=== PATIENT | male | born 1960 | race Caucasian/White ===

== ENCOUNTER 2020-03-15 13:55 | Outpatient (REF) | payer MEDICARE, MEDICAID, SELFPAY | END 2020-03-15 13:56 | disposition home or self-care (01) | LOC: HO.LAB 13:55 | PROVIDERS: PCP Internal Medicine; Visit Provider Internal Medicine | DX: Z20.828 Contact with and (suspected) exposure to other viral communicable diseases (principal) | CPT/HCPCS: C9803; U0003 ==

== ENCOUNTER 2020-08-20 11:18 | Outpatient (REF) | payer MEDICARE, OTHER, MEDICAID, SELFPAY ==
--- NOTE | ~2020-08-20 | XR_ITS ---
EXAMINATION: XR CHEST CLINICAL INFORMATION: Follow-up left lower lobe pneumonia COMPARISON: Previous chest x-ray June 2010 TECHNIQUE: 2 views of the chest were obtained. FINDINGS: The cardiac and mediastinal contours are normal. The lungs are clear without evidence of pneumonia. There may be an azygos lobe. There is no pleural effusion or pneumothorax. There is a battery in the left anterior chest wall and lead going toward the left lower neck. Bony structures are unremarkable. XR/XR chest 2V IMPRESSION: No evidence of pneumonia.
== END 2020-08-20 11:19 | disposition home or self-care (01) ==
LOC: HO.HMGCX 11:18
PROVIDERS: PCP Internal Medicine; Visit Provider Internal Medicine
DX: J18.1 Lobar pneumonia, unspecified organism (principal)
CPT/HCPCS: 71046

== ENCOUNTER 2021-12-31 10:33 | Outpatient (REF) | payer MEDICARE, OTHER, MEDICAID, SELFPAY ==
[2021-12-31 12:31] LABS: Valproate 58.5 mcg/mL (50.0-100.0)
[2021-12-31 12:34] LABS: Anion Gap 16 (12-20); Blood Urea Nitrogen 5 mg/dL (9-16); Calcium 9.3 mg/dL (8.4-10.2); Carbon Dioxide 24 mmol/L (22-29); Chloride 90 mmol/L (96-108); Estimated Glomerular Filt Rate > 60; Glucose Random 101 mg/dL (60-115); Potassium 4.3 mmol/L (3.3-5.1); Sodium 126 mmol/L (135-145)
[2021-12-31 13:41] LABS: Phenytoin Dilantin < 0.5 ug/mL (10.0-20.0)
== END 2021-12-31 10:34 | disposition home or self-care (01) ==
LOC: HO.LAB 10:33
PROVIDERS: PCP Internal Medicine; Visit Provider Internal Medicine
DX: R53.83 Other fatigue (principal); G40.909 Epilepsy, unspecified, not intractable, without status epilepticus; Z79.899 Other long term (current) drug therapy
CPT/HCPCS: 36415; 80048; 80164; 80185

== ENCOUNTER 2022-01-14 16:07 | Outpatient (REF) | payer MEDICARE, OTHER, MEDICAID, SELFPAY ==
[2022-01-14 16:43] LABS: Anion Gap 19 (12-20); Blood Urea Nitrogen 8 mg/dL (9-16); Calcium 9.4 mg/dL (8.4-10.2); Carbon Dioxide 25 mmol/L (22-29); Chloride 101 mmol/L (96-108); Estimated Glomerular Filt Rate > 60; Glucose Random 101 mg/dL (60-115); Potassium 4.8 mmol/L (3.3-5.1); Sodium 140 mmol/L (135-145)
== END 2022-01-14 16:08 | disposition home or self-care (01) ==
LOC: HO.LAB 16:07
PROVIDERS: PCP Internal Medicine; Visit Provider Internal Medicine
DX: E87.1 Hypo-osmolality and hyponatremia (principal)
CPT/HCPCS: 36415; 80048

== ENCOUNTER 2023-09-02 10:04 | Outpatient (REF) | payer MEDICARE, OTHER, MEDICAID, SELFPAY ==
--- NOTE | ~2023-09-02 | FL_ITS ---
EXAMINATION: XR FLUOROSCOPY UPPER GI WITH AIR CLINICAL INFORMATION: Dysphagia. COMPARISON: None TECHNIQUE: Fluoroscopic air contrast upper GI examination was performed utilizing standard techniques with thin and thick barium and effervescent granules. Numerous spot images were obtained. FINDINGS: Images of the oropharynx and hypopharynx demonstrate slow oral pharyngeal swallow mechanism with delayed epiglottic inversion and soft palate elevation. There is mild ballooning of the hypopharynx upon swallows. There is trace laryngeal penetration with thin and thick barium. No tracheal penetration, glottic or subglottic aspiration identified. Minimal nasopharyngeal reflux present. No hypopharyngeal mass or diverticulum. There was no significant cricopharyngeal achalasia. Probable vagal stimulator is seen on the left at the thoracic inlet. Battery pack lies over the anterior left lower thorax. Single contrast images of the esophagus demonstrate normal caliber, contour, and mucosal pattern. No evidence of stricture, mass, or ulcerations identified. There is to and fro motion of the barium column with nonpropulsive tertiary contractions noted throughout the esophagus. Small type I hiatal hernia is present. No significant gastroesophageal reflux was seen during the course of the examination and on reflux views. Dual contrast and single contrast images of the stomach are somewhat suboptimal. Evaluation of the stomach is overall limited due to poor distention of the stomach from inability to retain the effervescent granule gas. No obvious masses present. Rugal fold thickening may be a result of poor distention. Only scant amounts of contrast progressed into duodenal sweep and the proximal jejunum, with the majority of the contrast remaining in the stomach. Findings may reflect gastroparesis. There was recurrent retrograde peristalsis of contrast from the distal antrum back into the body of the stomach. Gastric outlet obstruction is possible but considered unlikely given appearance. Cannot well assess the duodenal folds or proximal jejunal mucosal folds. Ligament of Treitz appears in normal location. FLUOROSCOPY TIME: 6 minutes 49 seconds Number of Spot Images: 11 Number of Cine: 12 DOSE AREA PRODUCT: 4032 uGy-m2 (microgray-meter squared) FL/FL barium swallow IMPRESSION: 1. Trace laryngeal penetration with thin and thick barium. Slow oral pharyngeal swallow. Ballooning of the hypopharynx during swallow. No tracheal aspiration. 2. To and fro motion of the barium column with nonpropulsive tertiary contractions noted throughout the esophagus consistent with esophageal dysmotility. 3. Small type I hiatal hernia. No reflux identified. 4. Limited evaluation of the stomach due to inability to distend from poor tolerance of retaining the effervescent granule gas and subsequent underdistention. No obvious masses are seen. Prominent rugal folds are likely secondary to underdistention. 5. A trace amount contrast is seen progressing into the duodenal sweep and jejunum, however, the majority of the barium remains in the fundus of the stomach throughout the examination. Cannot well assess the duodenal or proximal jejunal caliber or mucosal patterns. Overall findings could suggest gastroparesis. Cannot exclude gastric outlet obstruction although considered less likely given appearance. Recommend correlation with EGD. 6. Vagal stimulator on the left. This procedure was performed by Brandt Horton PA-C, and supervised by Dr. Last
== END 2023-09-02 10:05 | disposition home or self-care (01) ==
LOC: HO.XRAY 10:04
PROVIDERS: PCP Internal Medicine; Visit Provider Internal Medicine
DX: R13.10 Dysphagia, unspecified (principal)
CPT/HCPCS: 74220

== ENCOUNTER → 2023-09-02 10:06 | Outpatient (BNV) | payer MEDICARE, OTHER, MEDICAID, SELFPAY | PROVIDERS: PCP Internal Medicine; Visit Provider Physician Assistant Surgical | DX: R13.10 Dysphagia, unspecified (principal) | CPT/HCPCS: 74246 ==